=== PATIENT | female | born 1925 | race Caucasian/White ===

== ENCOUNTER 2016-03-29 | Outpatient (CLI) | payer MEDICARE, OTHER | END 2016-03-29 13:10 | disposition EMS.NT ==

== ENCOUNTER 2016-03-31 15:51 | Outpatient (CLI) | payer MEDICARE, OTHER | END 2016-03-31 15:52 | disposition home or self-care (01) | DX: R10.9 Unspecified abdominal pain (principal); R63.4 Abnormal weight loss; R94.5 Abnormal results of liver function studies; R07.9 Chest pain, unspecified; I51.7 Cardiomegaly; J90 Pleural effusion, not elsewhere classified; I25.10 Atherosclerotic heart disease of native coronary artery without angina pectoris; M48.56XD Collapsed vertebra, not elsewhere classified, lumbar region, subsequent encounter for fracture with routine healing ==

== ENCOUNTER 2016-05-18 11:10 | Outpatient (CLI) | payer MEDICARE, OTHER | END 2016-05-18 11:11 | disposition home or self-care (01) | DX: R09.89 Other specified symptoms and signs involving the circulatory and respiratory systems (principal) ==

== ENCOUNTER 2016-05-24 11:59 | Outpatient (CLI) | payer MEDICARE, OTHER ==
[2016-05-25 11:20] LABS: BASOPHILS % (AUTO) 0.5 %; EOSINOPHILS # (AUTO) 0.2 10^3/uL (0.0-0.7); EOSINOPHILS % (AUTO) 3.3 %; HCT - HEMATOCRIT 37.4 % (37.0-47.0); HGB - HEMOGLOBIN 12.6 g/dL (12.0-16.0); LYMPHOCYTES # (AUTO) 1.3 10^3/uL (1.5-3.5); MEAN CORPUSCULAR HEMOGLOBIN 31.6 pg (27.0-31.0); MEAN CORPUSCULAR HGB CONC 33.7 g/dL (32.0-36.0); MEAN CORPUSCULAR VOLUME 93.7 fL (81.0-99.0); MEAN PLATELET VOLUME 10.4 fL (7.9-10.8); MONOCYTES # (AUTO) 0.9 10^3/uL (0.0-1.0); MONOCYTES % (AUTO) 17.5 %; NEUTROPHILS # (AUTO) 2.6 10^3/uL (1.5-6.6); NEUTROPHILS % (AUTO) 52.7 %; NUCLEATED RED BLOOD CELLS AUTO 0.1 /100WBC; RED BLOOD COUNT 3.99 10^6/uL (4.20-5.40); RED CELL DISTRIBUTION WIDTH 15.5 % (12.0-15.0); UNCORRECTED WHITE BLOOD COUNT 4.9 x10^3/uL; WHITE BLOOD COUNT 4.9 x10^3/uL (4.8-10.8)
== END 2016-05-24 12:00 | disposition home or self-care (01) ==
LOC: LAB.S 11:59
PROVIDERS: ATTEND Physician Assistant
DX: I10 Essential (primary) hypertension (principal)
CPT/HCPCS: 36415; 85025

== ENCOUNTER 2016-06-22 14:40 | Outpatient (CLI) | payer MEDICARE, OTHER | END 2016-06-22 14:41 | disposition home or self-care (01) | DX: Z51.5 Encounter for palliative care (principal); R07.89 Other chest pain; R63.4 Abnormal weight loss; I25.119 Atherosclerotic heart disease of native coronary artery with unspecified angina pectoris; I11.0 Hypertensive heart disease with heart failure; I50.9 Heart failure, unspecified; G30.9 Alzheimer's disease, unspecified; F02.80 Dementia in other diseases classified elsewhere, unspecified severity, without behavioral disturbance, psychotic disturbance, mood disturbance, and anxiety; F01.50 Vascular dementia, unspecified severity, without behavioral disturbance, psychotic disturbance, mood disturbance, and anxiety; I73.9 Peripheral vascular disease, unspecified; F42.4 Excoriation (skin-picking) disorder; Z66 Do not resuscitate; Z91.81 History of falling; Z91.83 Wandering in diseases classified elsewhere ==

== ENCOUNTER 2016-07-07 15:45 | Outpatient (CLI) | payer MEDICARE, OTHER | END 2016-07-07 15:46 | disposition home or self-care (01) | DX: Z51.5 Encounter for palliative care (principal); R07.9 Chest pain, unspecified; I42.9 Cardiomyopathy, unspecified; I25.119 Atherosclerotic heart disease of native coronary artery with unspecified angina pectoris; I73.9 Peripheral vascular disease, unspecified; G30.9 Alzheimer's disease, unspecified; F02.81 Dementia in other diseases classified elsewhere, unspecified severity, with behavioral disturbance; I25.10 Atherosclerotic heart disease of native coronary artery without angina pectoris; F01.51 Vascular dementia, unspecified severity, with behavioral disturbance; F05 Delirium due to known physiological condition; Z91.83 Wandering in diseases classified elsewhere; I50.9 Heart failure, unspecified; Z66 Do not resuscitate ==